=== PATIENT | female | born 2000 | race African-American/Black ===

== ENCOUNTER 2018-04-22 09:17 | Emergency (ER) | payer OTHER ==
[2018-04-22 09:20] VITALS: BP 118/68
[2018-04-22] MEDS ORDERED: MELO7.5T29 PO (10:13)
[2018-04-22] MEDS ORDERED: DOXY100C2 PO (10:13)
[2018-04-22] MEDS ORDERED: D-ME118S2 PO (10:13)
--- NOTE | 2018-04-22 10:14 | PHYS DOC ---
Past History Additional Past Medical Histor: Lupus Adult General Chief Complaint Chief Complaint: OTHER COMPLAINTS HPI HPI Patient is a 17 year old female who presents with upper respiratory infection symptoms for the past 5 days. Became worse last night with some swelling of the right eyelid. No visual changes noted. Patient reports a cough that gets worse with laying down along with postnasal drainage. No significant relief with over- the-counter Ayah-Ty Ty cough and cold as well as DayQuil maximum strength. Patient reports a generalized achiness. No nausea or vomiting. Describes the symptoms as being moderate in severity. Patient has a known history of lupus, last steroids were in November 2017 [] Review of Systems Review of Systems Constitutional: Denies fever or chills [] Eyes: Denies change in visual acuity, see history of present illness[] HENT: See history of present illness[] Respiratory: Reports cough, denies shortness of breath [] Cardiovascular: No chest pain or palpitations[] GI: Denies abdominal pain, nausea, vomiting, bloody stools or diarrhea [] : Denies dysuria or hematuria [] Musculoskeletal: Denies back pain or joint pain [] Integument: Denies rash or skin lesions [] Neurologic: Denies headache, focal weakness or sensory changes [] Endocrine: Denies polyuria or polydipsia [] All other systems were reviewed and found to be within normal limits, except as documented in this note. Allergies Allergies Allergies Coded Allergies Type Severity Reaction Last Updated Verified No Known Drug Allergies 04/22/18 No Physical Exam Physical Exam Constitutional: Well developed, well nourished, no acute distress, non-toxic appearance. [] HENT: Normocephalic, atraumatic, bilateral external ears normal, oropharynx moist, no oral exudates, nose with clear rhinorrhea. [] Eyes: PERRLA, EOMI, conjunctiva normal, mattering at the right tear duct. There is swelling of the right upper lid. There is no crepitus. No CHALEZEON or hordeolum noted.[] Neck: Normal range of motion, no tenderness, supple, no stridor. [] Cardiovascular:Heart rate regular rhythm, no murmur [] Lungs & Thorax: Bilateral breath sounds clear to auscultation [] Abdomen: Bowel sounds normal, soft, no tenderness, no masses, no pulsatile masses. [] Skin: Warm, dry, no erythema, no rash. [] Back: No tenderness, no CVA tenderness. [] Extremities: No tenderness, no cyanosis, no clubbing, ROM intact, no edema. [] Neurologic: Alert and oriented X 3, normal motor function, normal sensory function, no focal deficits noted. [] Psychologic: Affect normal, judgement normal, mood normal. [] EKG EKG [] Radiology/Procedures Radiology/Procedures [] Course & Med Decision Making Course & Med Decision Making Pertinent Labs and Imaging studies reviewed. (See chart for details) Medical decision making: This appears to be an upper respiratory infection complicated by the right eyelid swelling. No evidence of systemic toxicity. We will treat this with oral medication. Discussed plan with patient and her mother who voiced understanding. All questions were answered.[] Dragon Disclaimer Dragon Disclaimer This electronic medical record was generated, in whole or in part, using a voice recognition dictation system. Departure Departure: Impression: Primary Impression: Upper respiratory infection Additional Impression: Swollen eyelid Disposition: HOME, SELF-CARE Condition: GOOD Referrals: SHOLA JACOBO MD (PCP) Follow-up in 2 days Patient Instructions: Blepharitis, Form - Excuse from Work, School, or Physical Activity, Upper Respiratory Infection, Adult Additional Instructions: Follow-up with your regular doctor in 2 days. Apply warm compresses to the right eye/eyelid. Return to the ER if worsening pain, worsening swelling, or any other concerns Scripts Meloxicam (MELOXICAM) 7.5 Mg Tablet 7.5 MG PO DAILY for PAIN, #20 TAB Prov: ASHLEY GAY DO 04/22/18 D-Methorphan Hb/Prometh Hcl (PROMETHAZINE-DM SYRUP) 118 Ml Syrup 5 ML PO PRN Q4HRS for URI, #120 ML Prov: ASHLEY GAY DO 04/22/18 Doxycycline Hyclate (DOXYCYCLINE HYCLATE) 100 Mg Capsule 1 CAP PO BID for BLEPHARITIS, #20 CAP Prov: ASHLEY GAY DO 04/22/18 Problem Qualifiers Primary Impression: Upper respiratory infection URI type: unspecified URI Qualified Codes: J06.9 - Acute upper respiratory infection, unspecified Additional Impression: Swollen eyelid Laterality: right Qualified Codes: H02.843 - Edema of right eye, unspecified eyelid ASHLEY GAY DO Apr 22, 2018 10:13
== END 2018-04-22 10:20 | disposition home or self-care (01) ==
LOC: ER 09:17
DX: J06.9 Acute upper respiratory infection, unspecified (principal); H02.843 Edema of right eye, unspecified eyelid
CPT/HCPCS: 99283